=== PATIENT | male | born 1985 | race Caucasian/White ===

== ENCOUNTER → 2021-04-05 02:00 | Emergency (ER) | payer OTHER ==
[2021-04-04 21:23] LABS: HEMOGLOBIN 15.6 gm/dl (14.0-17.5); RED BLOOD COUNT 4.89 M/UL (4.20-5.50); WHITE BLOOD COUNT 7.8 K/UL (4.5-11.0)
[2021-04-04 21:37] LABS: BUN/CREATININE RATIO 11 (0-10)
[~2021-04-05 02:00] MED LIST: HYDROCODON-ACE1 EAC2 PO
== END | disposition home or self-care (01) ==
LOC: ER1 04-04 19:51
PROVIDERS: Family Medicine
DX: S42.002A Fracture of unspecified part of left clavicle, initial encounter for closed fracture (principal); S22.32XA Fracture of one rib, left side, initial encounter for closed fracture; S42.102A Fracture of unspecified part of scapula, left shoulder, initial encounter for closed fracture; F17.200 Nicotine dependence, unspecified, uncomplicated; W06.XXXA Fall from bed, initial encounter; Y92.410 Unspecified street and highway as the place of occurrence of the external cause
CPT/HCPCS: 70450; 71045; 71250; 72125; 73030; 80053; 82550; 82553; 83874; 84484; 85025; 96374; 96375; 99284; J2270; J2405

== ENCOUNTER 2021-04-06 12:57 | Emergency (ER) | payer OTHER ==
[2021-04-06 15:18] LABS: HEMOGLOBIN 14.5 gm/dl (14.0-17.5); RED BLOOD COUNT 4.74 M/UL (4.20-5.50); WHITE BLOOD COUNT 11.2 K/UL (4.5-11.0)
[2021-04-06 15:40] LABS: BUN/CREATININE RATIO 7 (0-10)
== END 2021-04-06 19:00 | disposition home or self-care (01) ==
LOC: ER1 12:57
PROVIDERS: Emergency Medicine
DX: S22.32XA Fracture of one rib, left side, initial encounter for closed fracture (principal); S42.022A Displaced fracture of shaft of left clavicle, initial encounter for closed fracture; F17.200 Nicotine dependence, unspecified, uncomplicated; V49.40XA Driver injured in collision with unspecified motor vehicles in traffic accident, initial encounter; Y92.410 Unspecified street and highway as the place of occurrence of the external cause
CPT/HCPCS: 71045; 71260; 80053; 85025; 93005; 99285; Q9967